=== PATIENT | male | born 1960 | race Caucasian/White ===

== ENCOUNTER 2016-09-04 11:49 | Emergency (ER) | payer BC, OTHER ==
[~2016-09-04] VITALS: Ht 182.9 cm; Wt 106.9 kg
[2016-09-04 11:53] VITALS: BP 158/87
== END 2016-09-04 12:55 | disposition home or self-care (01) ==
LOC: ED 12:45
DX: S52.614A Nondisplaced fracture of right ulna styloid process, initial encounter for closed fracture (principal); W26.0XXA Contact with knife, initial encounter; Y93.89 Activity, other specified; Y92.89 Other specified places as the place of occurrence of the external cause; Y99.8 Other external cause status
CPT/HCPCS: 29125